=== PATIENT | male | born 2000 | race Caucasian/White ===

== ENCOUNTER 2018-06-16 19:02 | Observation (INO) | payer OTHER ==
[2018-06-16] MEDS ORDERED: POTASSIUM CL 20 MEQ PKT ONE (19:17)
[2018-06-16] MEDS ORDERED: TDAP ADULT 0.5 ML INJ (BOOSTRIX) IM ONE (19:17)
[2018-06-16] MEDS ORDERED: CEFAZOLIN 1 GM/DEXTROSE/50 ML BAG IV ONE (19:17)
[2018-06-16] MEDS ORDERED: POTASSIUM CL 20 MEQ/15 ML UDCUP ONE (19:17)
[2018-06-16] MEDS ORDERED: POTASSIUM CL 20 MEQ/15 ML UDCUP PO ONE (19:19)
[2018-06-16] MEDS ORDERED: POTASSIUM CL 20 MEQ PKT PO ONE (19:19)
[2018-06-16 19:20] LABS: PLATELET COUNT 173 10^3/uL (150-400)
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
[2018-06-16] MEDS ORDERED: ceFAZolin 1 GM VIAL IVP ONE (19:21)
[2018-06-16] MEDS ORDERED: IOPAMIDOL (ISOVUE 370) 100 ML BTL IV ONE (19:28)
[2018-06-16] MEDS ORDERED: ONDANSETRON 4 MG/2 ML VIAL ONE ×2 (19:40→21:14)
[2018-06-16] MEDS ORDERED: ONDANSETRON 4 MG/2 ML VIAL IVP ONE (19:43)
[2018-06-16] MEDS ORDERED: PROTAMINE SULFATE 50 MG/5 ML VIAL IVP ONE (20:41)
[2018-06-16] MEDS ORDERED: BUPIVACAINE 0.25% 30 ML SDV ONE (20:41)
[2018-06-16] MEDS ORDERED: THROMBIN (BOVINE) 20,000 UNIT SPRAY TP ONE (20:41)
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
[2018-06-16] MEDS ORDERED: PROPOFOL/EMULSION 500 MG/50 ML BOTTLE IV ONE (20:55)
[2018-06-16] MEDS ORDERED: fentaNYL 100 MCG/2 ML INJ ONE ×2 (20:55→21:31)
[2018-06-16] MEDS ORDERED: ROCURONIUM 100 MG/10 ML VIAL ONE (20:56)
[2018-06-16] MEDS ORDERED: DEXAMETHASONE 4 MG/ML VIAL ONE (21:14)
[2018-06-16] MEDS ORDERED: ceFAZolin 1 GM VIAL ONE ×2 (21:16)
[2018-06-16] MEDS ORDERED: HYDROmorphONE/DILAUDID 1 MG/ML INJ IVP PRN (21:37)
[2018-06-16] MEDS ORDERED: DIAZEPAM 5 MG/ML 1 ML SYR IVP PRN (21:37)
[2018-06-16] MEDS ORDERED: NALOXONE HCL 0.4 MG/ML INJ IVP PRN (21:37)
[2018-06-16] MEDS ORDERED: DEXAMETHASONE 4 MG/ML VIAL IVP PRN (21:37)
[2018-06-16] MEDS ORDERED: ONDANSETRON 4 MG/2 ML VIAL IVP PRN (21:37)
[2018-06-16] MEDS ORDERED: fentaNYL 100 MCG/2 ML INJ IVP PRN (21:37)
[2018-06-16] MEDS ORDERED: ALBUTEROL 3 ML DEYVIAL IH PRN (21:37)
--- NOTE | 2018-06-16 21:37 | PDANEPAE ---
ANE History of Present Illness here for Left neck laceration ANE Past Medical History - Cardiovascular History Hx Hypertension: No Hx Arrhythmias: No Hx Chest Pain: No Hx Coronary Artery / Peripheral Vascular Disease: No Hx CHF / Valvular Disease: No Hx Palpitations: No - Pulmonary History Hx COPD: No Hx Asthma/Reactive Airway Disease: No Hx Recent Upper Respiratory Infection: No Hx Oxygen in Use at Home: No Hx Sleep Apnea: No - Endocrine History Hx Diabetes: No Hypothyroid: No Hyperthyroid: No Obesity: no - Renal History Hx Renal Disorders: No - Liver History Hx Hepatic Disorders: No ANE Review of Systems Review of systems is: negative Review of Systems: - Exercise capacity Exercise capacity: >=4 METS ANE Patient History - Allergies Allergies/Adverse Reactions: No Known Allergies Allergy (Verified 06/16/18 20:29) - Home Medications Home medications: home medication list seen and reviewed Home Medications: FLUoxetine [Prozac 20 MG (*)] 20 mg PO EVERY OTHER DAY 06/16/18 [Last Taken ] FLUoxetine [Prozac 20 MG (*)] 40 mg PO EVERY OTHER DAY 06/16/18 [Last Taken ] - NPO status NPO Status: no food or drink >8 hours NPO Since - Liquids (Date): 06/16/18 NPO Since - Liquids (Time): 20:00 NPO Since - Solids (Date): 06/16/18 NPO Since - Solids (Time): 08:00 - Anes Hx Anes Hx: no prior problems - Smoking Hx Smoking Status: Never smoked ANE Labs/Vital Signs - Labs Result Diagrams: 06/16/18 19:10 06/16/18 19:10 - Vital Signs Blood Pressure: 146/86 Heart Rate: 84 Respiratory Rate: 16 O2 Sat (%): 97 Height: 182.88 cm Weight: 72.575 kg ANE Physical Exam - Airway Neck exam: FROM Mallampati Score: Class 1 Mouth exam: normal dental/mouth exam - Pulmonary Pulmonary: no respiratory distress - Cardiovascular Cardiovascular: regular rate and rhythym - ASA Status ASA Status: II ANE Anesthesia Plan Anesthesia Plan: general endotracheal anesthesia
[2018-06-16] MEDS ORDERED: SUGAMMADEX SODIUM 200 MG/2 ML VIAL IVP ONE (21:47)
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
[2018-06-17] MEDS ORDERED: HYDROmorphONE/DILAUDID 1 MG/ML INJ IVP PRN (01:35)
[2018-06-17] MEDS ORDERED: HYDROCODONE/APAP 5/325 TAB PO PRN (01:35)
[2018-06-17] MEDS ORDERED: ONDANSETRON 4 MG/2 ML VIAL IVP PRN (01:35)
[2018-06-17] MEDS ORDERED: D5W 1/2 NS W/ 20 KCl/L 1,000 ML IV SCH (01:45)
[2018-06-17 08:04] VITALS: BP 101/50
--- NOTE | 2018-06-17 09:21 | TRAUMAPNT ---
Trauma Tertiary Progress Note New Findings: No new findings Assessment/Plan: POD#1 06/17/2018 Assessment: Angry about need to stay for psych eval. Minimal drainage, VSS Plan: Psych eval Ba Swallow to confirm GI integrity Objective: Vital Signs Temp Pulse Resp BP Pulse Ox 36.7 C 52 L 15 101/50 L 96 06/17/18 08:00 06/17/18 08:00 06/17/18 08:00 06/17/18 08:00 06/17/18 08:00 06/16/18 06/17/18 06/18/18 05:59 05:59 05:59 Intake Total 1308 Output Total 500 Balance 808 Physical Exam - Physical Exam General Appearance: WD/WN, alert, no apparent distress Neck: full range of motion, supple, other (Pendose drain in left neck) Respiratory: chest non-tender, lungs clear, normal breath sounds Cardiac/Chest: regular rate, rhythm Abdomen: normal bowel sounds, non-tender, soft Male Genitalia: deferred Rectal: deferred Back: Normal inspection Skin: normal color Extremities: normal range of motion, non-tender, other (Laceration left wrist) Neuro/Psych: no motor/sensory deficits, alert, normal mood/affect, oriented x 3 , other (Psych to see)
[2018-06-17 09:53] LABS: PLATELET COUNT 165 10^3/uL (150-400)
[2018-06-17] MEDS: FLUoxetine 20 MG CAP PO SCH ×2 (10:34→11:36)
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
--- NOTE | 2018-06-17 13:21 | ASMTTCLDSP ---
[facility] Discharge Disposition Disposition: Answers: Discharge If Answers: Yes DISCHARGED: Patient/family given suicide hotline info & SAMH[facility] brochure? Disposition Notes: Notes: Pt stated commitment or ability to keep self safe, denied thoughts of self harm or harm to others. Pt expressed a desire to f/u with his prescriber, Keyshawn Boyer MD in [place], [place]. Pt was given local hotline information and SAMH[employer] brochure After an Attempt. Discharge Concerns/Recommendations: Notes: In consultation with [facility] on-call psychiatrist, Tyler Angel MD, he concurred that pt does not appear to meet 27-65 criteria requiring psychiatric hospitalization as pt does not appear to be an imminent risk of harm to self/others/gravely disabled due to a mental illness condition. Dr. Angel provided telephone order read back vacating M1 hold at 1040 hrs. Was patient given the Answers: Not applicable Inpatient Behavioral Health Prohibited Belongings List while in the ED? Psychiatrist vacating M1 Tyler Angel MD Hold: Date and time M1 hold 06/17/2018 10:40 AM vacated (time format is hh:mm): Type of Hold: Answers: M1/72-hour Hold Hold initiated by: Answers: ED Physician Date Signed: 06/17/2018 11:57 AM Electronically Signed By:Juan Richardson
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
[2018-06-18] MEDS ORDERED: FLUoxetine 20 MG CAP PO SCH (09:00)
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
--- NOTE | 2018-06-21 13:39 | GPROG ---
[f rep st] PROGRESS NOTE DATE OF SERVICE: 06/21/2018 This patient underwent a left neck exploration with Dr. Dave. The patient was taken to the PACU in stable condition. The patient's pain and nausea were adequately controlled. There were no apparent complications from this anesthetic. /[id number]/MODL
== END 2018-06-17 15:45 | disposition home or self-care (01) ==
LOC: EEVIPCON 20:16 → INTOOBSV 20:16 → F2N 22:08
PROVIDERS: ADMIT Surgery; ATTEND Surgery
PROC: 0WJ60ZZ Inspection of Neck, Open Approach (ICD-10-PCS; 2018-06-16)
PROC: GZ11ZZZ Psychological Tests, Personality and Behavioral (ICD-10-PCS; 2018-06-16)
PROC: 0HQEXZZ Repair Left Lower Arm Skin, External Approach (ICD-10-PCS; principal; 2018-06-16 20:30)
DX: S61.512A Laceration without foreign body of left wrist, initial encounter (principal); S11.90XA Unspecified open wound of unspecified part of neck, initial encounter; F16.90 Hallucinogen use, unspecified, uncomplicated; Z23 Encounter for immunization; X78.9XXA Intentional self-harm by unspecified sharp object, initial encounter; Y99.9 Unspecified external cause status; Y93.9 Activity, unspecified
CPT/HCPCS: 80305; 82435-PO; 82565-PO; 82947-PO; 84132-PO; 84295-PO; 84520-PO; 85014-PO; 96374; G0480; J0690; J1100; J1644; J2405; J2704; J2720; J3010; Q9967